=== PATIENT | male | born 2000 | race Caucasian/White ===

== ENCOUNTER 2023-03-08 11:17 | Emergency (ER) | payer SELFPAY ==
--- NOTE | 2023-03-08 12:18 | XRAY Report ---
PROCEDURE: Shoulder 3 View RT INDICATIONS: shoulder deformity s/p fall TECHNIQUE: 3 views of the shoulder were acquired. COMPARISON: None. FINDINGS: Bones: No acute fractures are seen. There is anterior dislocation of the shoulder. No suspicious bon y lesions. Visualized ribs appear intact. Soft tissues: No suspicious soft tissue calcifications. IMPRESSION: Anterior shoulder dislocation. No definite fractures are seen. Reviewed by: Joe Goldstein MD on 03/08/2023 12:17 PM PDT Approved by: Joe Goldstein MD on 03/08/2023 12:17 PM PDT Station ID: [id number]
--- NOTE | 2023-03-08 12:31 | ED Physician Documentation ---
History of Present Illness - Stated complaint Stated Complaint: RT ARM INJ - Chief complaint Chief Complaint: Trauma Ext - History obtained from History obtained from: Patient - History of Present Illness Timing: Today Pain level max: 8 Pain level now: 8 - Additonal information Additional information: Patient is a 22-year-old male who presents to the emergency department after injuring the right shoulder. He states that he grabbed onto a stair railing as he fell down the stairs and injured the right shoulder. Worse with movement, better with rest. Patient is right-handed. No head, neck, back pain. No loss of consciousness. Review of Systems Constitutional: denies: Fever, Chills Respiratory: denies: Cough GI: denies: Nausea, Vomiting, Diarrhea Skin: denies: Rash Musculoskeletal: denies: Neck pain, Back pain Neurologic: denies: Headache PD PAST MEDICAL HISTORY - Past Medical History Past Medical History: Yes Psych: Depression - Present Medications Home Medications: Ambulatory Orders Medication Instructions Recorded Confirmed Escitalopram [Lexapro] 10 mg PO DAILY 03/08/23 03/08/23 Oxycodone HCl/Acetaminophen 1 - 2 each PO Q6H PRN #14 tablet 03/08/23 [Percocet 5-325 mg Tablet] MDD 6 tabs - Allergies Allergies/Adverse Reactions: Allergies Allergy/AdvReac Type Severity Reaction Status Date / Time Penicillins Allergy Unknown Verified 03/08/23 11:29 - Living Situation Living Situation: reports: With family Living Arrangement: reports: At home - Family History Family history: reports: Non contributory PD ED PE NORMAL - Vitals Vital signs reviewed: Yes - General General: Alert and oriented X 3, No acute distress - HEENT HEENT: Atraumatic, PERRL, Moist mucous membranes - Neck Neck: Supple, no meningeal sign, No bony TTP - Cardiac Cardiac: RRR, Strong equal pulses - Respiratory Respiratory: No respiratory distress, Clear bilaterally - Abdomen Abdomen: Soft, Non tender, Non distended - Back Back: No spinal TTP - Derm Derm: Warm and dry - Extremities Extremities: Other (There is an empty socket in the right shoulder. Limited range of motion secondary to pain. Neurovascular intact including axillary nerve) - Neuro Neuro: Alert and oriented X 3 - Psych Psych: Normal mood, Normal affect Results - Vitals Vitals: Vital Signs - 24 hr 03/08/23 03/08/23 03/08/23 11:29 12:31 14:01 Temperature 36.8 C Heart Rate 68 69 80 Respiratory 20 18 16 Rate Blood Pressure 150/103 H 148/83 H 145/85 H O2 Saturation 97 100 97 Oxygen O2 Source Room air - Rads (name of study) Right shoulder x-ray Relevant Findings:: Final report received, See rad report Postreduction shoulder x-ray Relevant Findings:: Final report received, See rad report Procedures - Reduction Body part reduced: Shoulder Shoulder reduction technique: Other (spaso) Reduction aftercare: NV intact, Xray confirms reduction, Alignment improved, Sling PD Medical Decision Making - ED course Complexity details: reviewed results, re-evaluated patient, considered differential, d/w patient ED course: 22-year-old male with a right shoulder dislocation. He was given 2 mg of Dilaudid. The Spaso technique was used to reduce the shoulder. Tolerated well. No complications. Appears to have a Hill-Sachs deformity on postreduction x- ray. We will have him follow-up with orthopedics for further care. Neurovascular intact including the axillary nerve. Patient counseled regarding signs and symptoms for which I believe and urgent re-evaluation would be necessary. Patient with good understanding of and agreement to plan and is comfortable going home at this time This document was made in part using voice recognition software. While efforts are made to proofread this document, sound alike and grammatical errors may occur. Departure - Departure Disposition: 01 Home, Self Care Clinical Impression: Shoulder dislocation Qualifiers: Encounter type: initial encounter Laterality: right Qualified Code(s): S43.004A - Unspecified dislocation of right shoulder joint, initial encounter Hill-Sachs fracture Qualifiers: Encounter type: initial encounter Fracture type: closed Laterality: right Qualified Code(s): S42.291A - Other displaced fracture of upper end of right humerus, initial encounter for closed fracture Condition: Good Instructions: ED Dislocation Shoulder Redu Follow-Up: Orthopedic Care [Provider Group] - Within 1 week Prescriptions: Oxycodone HCl/Acetaminophen [Percocet 5-325 mg Tablet] 1 - 2 each PO Q6H PRN #14 tablet MDD 6 tabs PRN Reason: pain Comments: Your prescription sent to [facility] in [place]. It is important that you follow-up with orthopedics. You should be seen within about 1 week, you had a shoulder dislocation today that was reduced. You also have a Hill-Sachs fracture that will need follow-up. I am prescribing a short course of narcotic pain medication for you. These are potentially dangerous and addictive medications that should be used carefully. These medications may constipate you. Take an nkuk-eue-reraczu stool softener (docusate) twice daily with plenty of water while taking these medications. If you go 24 hours without a bowel movement, take lhow-szr-bmvlaod miralax, per package instructions. Do not drink or drive while taking these medications. If you received narcotic or sedating medications while in the emergency department, do not drive for 24 hours. Store this medication in a safe, secure place and out of reach of children. It is a violation of federal law to give or sell this medication to another person or to use in a manner other than prescribed. The ED will not refill narcotic prescriptions, including prescriptions lost or stolen. To dispose of unwanted medications: 1. [facility] [address] in [place] has a medication drop box. They accept prescription medications (in pill form) Tuesday through Tuesday 9:00 a.m. to 5:00 p.m. 2. The [facility] [place] [employer] accepts prescription medications (in pill form only) for disposal year round. Call for more information. 3. Contact the [facility] for the next [facility] sponsored prescription drug collection event. , [phone], or [phone]; Forms: PCP List, Activity restrictions Discharge Date/Time: 03/08/23 15:19
[2023-03-08] MEDS: HYDROmorphone 1 MG/ML CARPUJECT IVP STA ×2 (12:38→13:02)
[2023-03-08 14:01] VITALS: BP 145/85; O2SAT 97
--- NOTE | 2023-03-08 14:24 | XRAY Report ---
PROCEDURE: Shoulder 2 View RT INDICATIONS: s/p reduction TECHNIQUE: 2 views of the shoulder were acquired. COMPARISON: Same-day radiograph FINDINGS: Bones: Hill-Sachs impaction fracture is present. No displaced bony Bankart is identified on radiogra phy. Repositioned glenohumeral joint. Soft tissues: No suspicious soft tissue calcifications. IMPRESSION: Reduction of shoulder dislocation. Impaction Hill-Sachs is seen. No displaced osseous Bankart. Consid er MRI to further evaluate if necessary. Reviewed by: Juan Alberto Black MD on 03/08/2023 2:23 PM PDT Approved by: Juan Alberto Black MD on 03/08/2023 2:23 PM PDT Station ID: [id number]
== END 2023-03-08 15:19 | disposition home or self-care (01) ==
LOC: ED 11:17
DX: S42.291A Other displaced fracture of upper end of right humerus, initial encounter for closed fracture (principal); W10.9XXA Fall (on) (from) unspecified stairs and steps, initial encounter; Z79.899 Other long term (current) drug therapy
CPT/HCPCS: 23650; 99283